=== PATIENT | female | born 1950 | race Caucasian/White ===

== ENCOUNTER → 2017-01-01 | Outpatient (CLI) | payer MEDICARE, OTHER ==
--- NOTE | 2017-01-01 14:59 | CONS ---
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 Problems: (1) History of total right hip arthroplasty Status: Chronic Comment: * [place] labs ordered today. * Given soft tissue swelling as well as findings of the hip with past metal-on- metal prosthesis placed in 2004, possible revision surgery may be necessary in regards to head and liner exchange * Patient will have labs performed. After lab review discussion will be had with patient regarding pursuit of hip revision surgery. (2) Osteoarthritis of right knee Comment: * Patient is provided consent to proceed with right knee cortisone injection. 1 cc of 40 mg/mL Kenalog and 2 cc of 1% lidocaine was drawn up using 18-gauge needle. Area of the knee was marked and cleaned with Betadine swab followed by isopropyl alcohol swab. Using 25-gauge needle, injection was performed without complication. Band-Aid applied after. Patient was observed for 5 minutes with no complications and then discharged. * Continue ibuprofen as needed for pain complaints. 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 Qualifiers: Qualified Code: M17.11 - Primary osteoarthritis of right knee Additional Assessment/Plan Dr. Moreland was present for examination and agrees with plan. Consultation Date/Type/Reason Admit Date/Time Date of Consultation: Jan 01, 2017 Reason for Consultation Right knee pain Hx of Present Illness 66-year-old female presents today for initial consultation regarding right knee pain that has been present for the past 3-4 years. Pain has been present in and off and on fashion. Insidious onset with no specific injury or trauma at time of initial pain presentation. 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 Pain is typically onset with weightbearing activities and increases throughout the day. Pain reaches a maximum point of 7/10 on the pain scale. Relieving factors is rest and elevating the leg. Patient denies any previous injury to the knee. Denies any clicking or popping. Denies any instability or knee giving out. Patient denies any past physical therapy or surgical intervention to the right knee. Patient's history is significant for cortisone injection 2. First injection was in 2012 and the last injection was in 2017. Both injections provided about 2 months relief. Patient takes ibuprofen as needed for pain relief. Her's history is significant for a bilateral total hip arthroplasty in [address] Dwyer. In regards to the left hip patient denies any complaints she has full range of motion and no limited function. She does have complaints of significant right hip/groin pain. She states that when she flexes her hip there is significant stiffness and she feels that her hip locks creating pain that can radiate down to the knee. Pain to the hip also limits flexion to the knee, per patient account. She denies any falls or injury to the hip status post surgery. Denies any other complications status post hip surgery. Constitutional: no complaints Eyes: no complaints ENT: no complaints Respiratory: no complaints (Patient has a past history of exposure to tuberculosis while performing in the [employer] in 1979. Denies any active symptoms.) Cardiovascular: no complaints Gastrointestinal: other (History of hiatal hernia) Genitourinary: no complaints Musculoskeletal: bone/joint pain Skin: no complaints Neurologic: headache Endocrine: no complaints Lymphatic: no complaints Psychological: no complaints Immunologic: no complaints Past Medical History Medical History: other (Hiatal hernia.) Past Surgical History Tonsillectomy 1953 Right shoulder impingement/work comp injury (unknown name of surgery) 1989 and October 2004 total hip arthroplasty performed by Dr. Dwyer Family History Significant Family History: no pertinent family hx Social History Previous alcohol use, stopped 10 years ago. Smoking Status: Never smoker Drug Use: none Exam/Review of Systems Vital Signs Vitals Blood pressure is 133/73, temperature is 90.2, pulse is 77, respiratory rate is 14, height is 5 foot 2-1/2 inches, weight is 143 pounds Exam Right knee: No tenderness to palpation to the right knee today. No significant swelling is observed. Patient is able to flex up to 90 with palpable patellofemoral crepitus during range of motion. Full extension. 5/5 strength on resistance. Normal sensory examination to light touch. Negative Shamar's test. Negative Mickey's test. Right hip: No tenderness to palpation to the greater trochanteric region. Well- healed surgical scar to the gluteus johan. Patient is able to flex up to 90 with significant pain. Hip gets locked at 90 with difficulty relieving and returning to full extension. Limited abduction and adduction. 4/5 strength on resistance with flexion and 5/5 strength on extension. Imaging: X-ray to the right knee performed on 01/01/2017 showing moderate to severe joint space narrowing with osteoarthritic changes. No bone on bone deformity. No evidence of acute injury. X-ray to the right hip performed on 01/01/2017 showing [id number] ASR prosthesis with soft tissue swelling. No signs of any loosening of metal prosthesis. Constitutional: alert, oriented, well developed SHAILA MUNOZ PA-C Jan 01, 2017 14:59
--- NOTE | 2017-01-02 08:59 | RADRPT ---
PROCEDURE: XR Knees. CLINICAL INDICATION: Bilateral knee pain. TECHNIQUE: Total of six views. Frontal, oblique, and lateral views of both knees. COMPARISON: No prior study is available for comparison. FINDINGS: There is no fracture or dislocation. The soft tissues are normal. There are degenerative changes with osteophytes arising from all 3 joint compartment margins bilater ally. There is bilateral lateral joint compartment narrowing. There is no lytic or blastic lesion. There is no radiopaque foreign body. IMPRESSION: 1. Moderate degenerative changes of both knees. 2. No acute abnormality. RPTAT: QQ .Evan Soria MD, MD Date Time Electronically viewed and signed by .Evan Soria MD, on 01/02/2017 08:59 .R/
--- NOTE | 2017-01-02 09:41 | RADRPT ---
PROCEDURE: XR Right hip and pelvis. CLINICAL INDICATION: Right hip pain and pelvic pain. TECHNIQUE: 3 views. Frontal pelvis. Frontal and lateral right hip. COMPARISON: None. FINDINGS: There are bilateral total hip arthroplasties. These appear satisfactory with no fracture, dislocatio n, or loosening. The soft tissues are normal. There is no lytic or blastic lesion. The upper pelvis is not included on the frontal view. IMPRESSION: 1. Bilateral total hip arthroplasties. 2. Otherwise unremarkable study. RPTAT: QQ .Evan Soria MD, MD Date Time Electronically viewed and signed by .Evan Soria MD, MD on 01/02/2017 09:41 .R/
== END | disposition home or self-care (01) ==
LOC: HKI 13:35
PROVIDERS: ATTEND Orthopaedic Surgery
DX: M25.561 Pain in right knee (principal); M17.11 Unilateral primary osteoarthritis, right knee; M25.551 Pain in right hip; Z96.643 Presence of artificial hip joint, bilateral
CPT/HCPCS: 73502